=== PATIENT | female | born 1990 | race Caucasian/White ===

== ENCOUNTER 2017-07-08 19:06 | Emergency (ER) | payer BC | END 2017-07-08 20:14 | disposition home or self-care (01) | LOC: E/R 20:14 | DX: J02.9 Acute pharyngitis, unspecified (principal) | CPT/HCPCS: 99283 ==

== ENCOUNTER 2017-07-17 08:27 | Emergency (ER) | payer BC | END 2017-07-17 09:15 | disposition home or self-care (01) | LOC: FTE 08:27 | DX: J06.9 Acute upper respiratory infection, unspecified (principal); J02.9 Acute pharyngitis, unspecified | CPT/HCPCS: 99283 ==

== ENCOUNTER 2018-09-12 20:54 | Emergency (ER) | payer BC ==
[2018-09-12] MEDS: DEXAMETHASONE 10 MG/ML 1 ML INJ IM (23:03)
[2018-09-12] MEDS: KETOROLAC 30 MG INJ IM (23:04)
== END 2018-09-13 00:18 | disposition home or self-care (01) ==
LOC: FTE 09-13 00:18
DX: M54.5 Low back pain (principal)
CPT/HCPCS: 81025; 96372; 99284-25